=== PATIENT | male | born 1960 | race Caucasian/White ===

== ENCOUNTER 2020-07-23 15:37 | Emergency (ER) | payer OTHER ==
[2020-07-23 16:20] LABS: Basophils % 1.1 % (0-1.3); Hematocrit 45.2 % (39.6-49.0); Lymphocytes % 25.1 % (15.3-44.8); MPV 9.6 fL (7.6-11.3); Protime INR 0.97; RBC Red Blood Cell Count 4.96 M/uL (4.33-5.43)
[2020-07-23 16:37] LABS: ALT/SGPT 28 U/L (12-78); AST/SGOT 11 U/L (15-37); Albumin 4.1 g/dL (3.4-5.0); Alkaline Phosphatase 89 U/L (45-117); BUN Blood Urea Nitrogen 24 mg/dL (7-18); Bicarbonate 27 mmol/L (21-32); Bilirubin Direct 0.2 mg/dL (0-0.2); Bilirubin Total 0.8 mg/dL (0.2-1.0); Glucose Level 100 mg/dL (74-106); Magnesium 2.2 mg/dL (1.8-2.4); NT PRO-BNP 22 pg/mL (<125); Protein, Total 7.7 g/dL (6.4-8.2); Sodium Level 140 mmol/L (136-145); Troponin (Emerg Dept Use Only) < 0.02 ng/mL (0.0-0.045)
--- NOTE | 2020-07-23 16:46 | RAD REPORT ---
EXAM DESCRIPTION: Deb Single View07/23/2020 4:11 pm CLINICAL HISTORY: Chest pain COMPARISON: 2008 FINDINGS: The lungs appear clear of acute infiltrate. The heart is normal size IMPRESSION: No acute abnormalities displayed
[2020-07-23] MEDS ORDERED: LIDOCAINE VISCOUS 2% SOLN 15 ML UDC ONE (17:38)
[2020-07-23] MEDS ORDERED: MAGNES/ALUMIN/SIMET 30ML UCUP ONE (17:38)
--- NOTE | 2020-07-23 18:38 | EDPHYS ---
Physician Documentation [facility] Name: Donn Ryder Age: 59 yrs Sex: Male : 1960 Arrival Date: 07/23/2020 Time: 15:39 Bed 7 Private MD: ED Physician Deniz Gifford HPI: 07/23 15:55 This 59 yrs old Male presents to ER via Ambulatory with complaints of Chest jm Pain. 15:55 The patient or guardian reports chest pain that is located primarily in the substernal [facility] area. Onset: gradually, 1 week(s) ago. The pain radiates to. Associated signs and symptoms: Pertinent positives: chest pain. The chest pain is described as aching. Duration: The patient or guardian reports multiple episodes. Modifying factors: The symptoms are alleviated by nothing. the symptoms are aggravated by. This is a 59 year old male with a history of hlp, GERD that presents to the ED with complaints of midsternal chest pain beginning approx 1 week ago which has waxed and waned. Pain radiates to the right side of the chest as well. Denies SOB. States he does have some epigatric pain which is similar in character to pain from hiatal hernia/GERD. Patient states he also has had occasional palpitations. . Historical: - Allergies: 15:46 No Known Allergies; ll1 - PMHx: 15:46 High Cholesterol; GERD; ll1 - PSHx: 15:46 knee sx; Cholecystectomy; ll1 - Immunization history:: Flu vaccine is not up to date. - Social history:: Smoking status: Patient denies any tobacco usage or history of. ROS: 15:55 Constitutional: Negative for fever, chills, and weight loss. jmm 15:55 Cardiovascular: Positive for chest pain. 15:55 Abdomen/GI: Positive for abdominal pain. 15:55 All other systems are negative. Exam: 15:55 Constitutional: This is a well developed, well nourished patient who is awake, alert, jmm and in no acute distress. Head/Face: atraumatic. Eyes: EOMI, no conjunctival erythema appreciated ENT: Moist Mucus Membranes Neck: Trachea midline, Supple Chest/axilla: Normal chest wall appearance and motion. Cardiovascular: Regular rate and rhythm. No edema appreciated Respiratory: Normal respirations, no respiratory distress appreciated 15:55 Back: Normal ROM Skin: General appearance color normal MS/ Extremity: Moves all extremities, no obvious deformities appreciated, no edema noted to the lower extremities Neuro: Awake and alert, normal gait Psych: Behavior is normal, Mood is normal, Patient is cooperative and pleasant 15:55 Abdomen/GI: Inspection: abdomen appears normal, Bowel sounds: normal, Palpation: soft, mild abdominal tenderness, in the epigastric area. Vital Signs: 15:43 BP 131 / 85; Pulse 91; Resp 17; Temp 97.1; Pulse Ox 100% ; Weight 92.53 kg; Height 6 ll1 ft. 0 in. (182.88 cm); Pain 3/10; 16:25 BP 118 / 73; Pulse 84 MON; Resp 14; Pulse Ox 100% on R/A; sv 17:25 BP 109 / 72; Pulse 71; Resp 13; Pulse Ox 98% on R/A; sv 18:30 BP 110 / 80; Pulse 69; Resp 14; Pulse Ox 98% on R/A; sv 15:43 Body Mass Index 27.67 (92.53 kg, 182.88 cm) ll1 16:25 Sinus Rhythm sv MDM: 16:56 Patient medically screened. [facility] 18:36 Data reviewed: vital signs, nurses notes. Counseling: I had a detailed discussion with aleks the patient and/or guardian regarding: the historical points, exam findings, and any diagnostic results supporting the discharge/admit diagnosis, lab results, radiology results, the need for outpatient follow up, to return to the emergency department if symptoms worsen or persist or if there are any questions or concerns that arise at home. Refusal of service: The patient/guardian displays adequate decision making capability and despite a detailed discussion of alternatives, benefits, risks, and consequences refuses: Admission to the hospital for further work-up and treatment. ED course: Patient refused repeat troponin. 07/23 15:55 Order name: Basic Metabolic Panel [facility] 07/23 15:55 Order name: CBC with Diff [facility] 07/23 15:55 Order name: LFT's [facility] 07/23 15:55 Order name: Magnesium [facility] 07/23 15:55 Order name: NT PRO-BNP [facility] 07/23 15:55 Order name: PT-INR [facility] 07/23 15:55 Order name: Troponin (emerg Dept Use Only) [facility] 07/23 16:23 Order name: Protime (+INR); Complete Time: 17:28 [facility] 07/23 16:26 Order name: CBC with Automated Diff; Complete Time: 16:41 [facility] 07/23 16:37 Order name: Basic Metabolic Panel; Complete Time: 16:41 [facility] 07/23 16:37 Order name: Liver (Hepatic) Function; Complete Time: 16:41 [facility] 07/23 16:37 Order name: Troponin (Emerg Dept Use Only); Complete Time: 16:41 [facility] 07/23 16:37 Order name: NT PRO-BNP; Complete Time: 16:41 [facility] 07/23 16:37 Order name: Magnesium; Complete Time: 16:41 [facility] 07/23 15:55 Order name: XRAY Chest (1 view) [facility] 07/23 15:55 Order name: EKG; Complete Time: 15:56 [facility] 07/23 15:55 Order name: Cardiac monitoring; Complete Time: 16:03 [facility] 07/23 15:55 Order name: EKG - Nurse/Tech; Complete Time: 16:03 [facility] 07/23 15:55 Order name: IV Saline Lock; Complete Time: 16:21 [facility] 07/23 15:55 Order name: Labs collected and sent; Complete Time: 16:21 [facility] 07/23 15:55 Order name: O2 Per Protocol; Complete Time: 16:03 [facility] 07/23 15:55 Order name: O2 Sat Monitoring; Complete Time: 16:03 [facility] 07/23 16:47 Order name: RAD; Complete Time: 16:54 [facility] 07/23 16:56 Order name: D-Dimer [facility] 07/23 17:28 Order name: D-Dimer; Complete Time: 17:28 [facility] 07/23 17:52 Order name: Troponin (emerg Dept Use Only): draw at 1840 jmm Administered Medications: 17:24 Drug: GI Cocktail without - (Maalox Suspension 30 ml, Lidocaine Liquid 2 % 15 sv ml) Route: PO; 18:54 Follow up: Response: No adverse reaction sv Disposition: 07/23/20 18:38 Discharged to Home. Impression: Chest pain, unspecified. - Condition is Stable. - Discharge Instructions: Nonspecific Chest Pain. - Medication Reconciliation Form, Thank You Letter, Antibiotic Education, Prescription Opioid Use form. - Follow up: Private Physician; When: 1 - 2 days; Reason: Recheck today's complaints, Continuance of care, Re-evaluation by your physician. Addendum: 07/28/2020 19:21 Co-signature as Attending Physician, Deniz Gifford MD I agree with the assessment and t w4 plan of care. Signatures: Dispatcher [employer] Angelina Sanchez, RN RN Gary Hernandez PA PA jmm Baxter, Heather, RN RN Deniz Gifford MD MD tw4 Kaur Perez RN RN ll1 Corrections: (The following items were deleted from the chart) 07/23 18:54 18:38 07/23/2020 18:38 Discharged to Home. Impression: Chest pain, unspecified. hb Condition is Stable. Forms are Medication Reconciliation Form, Thank You Letter, Antibiotic Education, Prescription Opioid Use. Follow up: Private Physician; When: 1 - 2 days; Reason: Recheck today's complaints, Continuance of care, Re-evaluation by your physician. aleks
--- NOTE | 2020-07-23 18:38 | ER ---
Nurse's Notes [facility] Name: Donn Ryder Age: 59 yrs Sex: Male : 1960 Arrival Date: 07/23/2020 Time: 15:39 Bed 7 Private MD: Diagnosis: Chest pain, unspecified Presentation: 07/23 15:43 Chief complaint: Patient states: CP off/on for 1 week. Thought his hiatal hernia was ll1 acting up, medications didn't help for GERD. Coronavirus screen: Client denies travel out of the [place] in the last 14 days. Ebola Screen: Patient denies travel to an Ebola-affected area in the 21 days before illness onset. Initial Sepsis Screen: Does the patient meet any 2 criteria? HR > 90 bpm. No. Patient's initial sepsis screen is negative. Does the patient have a suspected source of infection? Yes: Other: chest pain. Risk Assessment: Do you want to hurt yourself or someone else? Patient reports no desire to harm self or others. Onset of symptoms was July 17, 2020. 15:43 Method Of Arrival: Ambulatory ll1 15:43 Acuity: RIOS 3 ll1 Historical: - Allergies: 15:46 No Known Allergies; ll1 - PMHx: 15:46 High Cholesterol; GERD; ll1 - PSHx: 15:46 knee sx; Cholecystectomy; ll1 - Immunization history:: Flu vaccine is not up to date. - Social history:: Smoking status: Patient denies any tobacco usage or history of. Screenin:50 Abuse screen: Denies threats or abuse. Denies injuries from another. Nutritional sv screening: No deficits noted. Tuberculosis screening: No symptoms or risk factors identified. Fall Risk None identified. Assessment: 15:55 General: Appears in no apparent distress. uncomfortable, slender, well groomed, well sv developed, Behavior is calm, cooperative, appropriate for age. Pain: Complains of pain in anterior aspect of left upper chest and left breast Pain does not radiate. Pain currently is 3 out of 10 on a pain scale. Pain began about a week ago Is continuous, Current management is with Prilosec with no relief. Neuro: Level of Consciousness is awake, alert, obeys commands, Oriented to person, place, time, situation, Moves all extremities. Full function Gait is steady, Speech is normal. Cardiovascular: Patient's skin is warm and dry. Rhythm is sinus rhythm. Respiratory: Airway is patent Respiratory effort is even, unlabored, Respiratory pattern is regular, symmetrical. Derm: Skin is intact, Skin is pink, warm \T\ dry. Musculoskeletal: Range of motion: intact in all extremities. 17:25 Reassessment: Patient appears in no apparent distress at this time. No changes from sv previously documented assessment. Patient and/or family updated on plan of care and expected duration. Pain level reassessed. Patient is alert, oriented x 3, equal unlabored respirations, skin warm/dry/pink. 18:42 Reassessment: Pt refusing to have repeat troponin drawn, wants to just go home. sv 18:54 Reassessment: Patient appears in no apparent distress at this time. Patient and/or sv family updated on plan of care and expected duration. Pain level reassessed. Patient is alert, oriented x 3, equal unlabored respirations, skin warm/dry/pink. Vital Signs: 15:43 BP 131 / 85; Pulse 91; Resp 17; Temp 97.1; Pulse Ox 100% ; Weight 92.53 kg; Height 6 ll1 ft. 0 in. (182.88 cm); Pain 3/10; 16:25 BP 118 / 73; Pulse 84 MON; Resp 14; Pulse Ox 100% on R/A; sv 17:25 BP 109 / 72; Pulse 71; Resp 13; Pulse Ox 98% on R/A; sv 18:30 BP 110 / 80; Pulse 69; Resp 14; Pulse Ox 98% on R/A; sv 15:43 Body Mass Index 27.67 (92.53 kg, 182.88 cm) ll1 16:25 Sinus Rhythm sv ED Course: 15:39 Patient arrived in ED. rg4 15:45 Triage completed. ll1 15:47 Arm band placed on. ll1 15:50 Angelina Dyson, RN is Primary Nurse. sv 15:50 Patient has correct armband on for positive identification. Placed in gown. Bed in low sv position. solvent process extractor operator on. Pulse ox on. NIBP on. Door closed. Head of bed elevated. 15:54 Gary Hernandez PA is PHCP. aleks 15:54 Deniz Gifford MD is Attending Physician. [facility] 15:56 EKG done, by ED staff, reviewed by Gary ROMEO. sv 16:03 X-ray(s) taken. Patient maintains SpO2 saturation greater than 95% on room air. sv 16:05 Inserted saline lock: 20 gauge in right antecubital area, using aseptic technique. sv Blood collected. Flushed right antecubital with 5 ml normal saline. 16:21 Basic Metabolic Panel Sent. sv 16:21 CBC with Diff Sent. sv 16:21 LFT's Sent. sv 16:21 Magnesium Sent. sv 16:21 NT PRO-BNP Sent. sv 16:21 PT-INR Sent. sv 16:21 Troponin (emerg Dept Use Only) Sent. sv 16:21 XRAY Chest (1 view) Sent. sv 17:24 D-Dimer Sent. sv 18:50 IV discontinued, intact, bleeding controlled, No redness/swelling at site. Pressure dh3 dressing applied. 18:53 No provider procedures requiring assistance completed. IV discontinued, intact, sv bleeding controlled, No redness/swelling at site. Pressure dressing applied. Administered Medications: 17:24 Drug: GI Cocktail without - (Maalox Suspension 30 ml, Lidocaine Liquid 2 % 15 sv ml) Route: PO; 18:54 Follow up: Response: No adverse reaction sv Outcome: 18:38 Discharge ordered by . [facility] 18:53 Discharged to home ambulatory. sv 18:53 Condition: stable 18:53 Discharge instructions given to patient, Instructed on discharge instructions, follow up and referral plans. Demonstrated understanding of instructions, follow-up care. 18:53 Discharged to home ambulatory. hb 18:53 Condition: stable 18:53 Discharge instructions given to patient, Instructed on discharge instructions, follow up and referral plans. medication usage, Demonstrated understanding of instructions, follow-up care, medications. 18:54 Patient left the ED. hb Signatures: Angelina Dyson RN RN Gary Kerns PA PA jmm Baxter, Heather, RN RN hb Garcia, Rubi 4 Alma Chilel 3 Kaur Perez RN RN ll1 Corrections: (The following items were deleted from the chart) 15:48 15:43 BP 133 / 100; Pulse 91bpm; Resp 17bpm; Pulse Ox 100%; Temp 97.1F; 92.53 kg; ll1 Height 6 ft. 0 in.; BMI: 27.6; Pain 310; ll1
[2020-07-23 18:59] VITALS: TEMP 97.1
[2020-07-23 19:02] VITALS: BP 109/72; O2SAT 98
--- NOTE | 2020-07-24 13:14 | EKG ---
Test Date: 2020-07-23 Test Time: 15:56:31 Radio Interference Trouble Shooter: MALINDA MEASUREMENT RESULTS: Intervals: Rate: 81 IN: 170 QRSD: 82 QT: 344 QTc: 399 [place]ion: P: 61 IN: 170 QRS: 96 T: 60 INTERPRETIVE STATEMENTS: Normal sinus rhythm with sinus arrhythmia Possible Left atrial enlargement Rightward axis RSR' or QR pattern in V1 suggests right ventricular conduction delay Borderline ECG Compared to ECG 11/24/2008 14:30:19 Right-axis deviation now present RSR' in V1 or V2 now present Sinus bradycardia no longer present Electronically Signed On 07-24-20 13:12:33 DIRECTOR OF GLOBAL SALES by Kennedy Montes
== END 2020-07-23 18:54 | disposition home or self-care (01) ==
LOC: ER 15:37
DX: R07.9 Chest pain, unspecified (principal); E78.00 Pure hypercholesterolemia, unspecified; K21.9 Gastro-esophageal reflux disease without esophagitis
CPT/HCPCS: 36415; 71045; 80048; 80076; 83735; 83880; 84484; 85025; 85379; 85610; 93005; 99285

== ENCOUNTER 2023-04-11 13:53 | Emergency (ER) | payer OTHER ==
[2023-04-11 14:35] LABS: Absolute Lymphocytes (CBC) 2.3 K/uL (0.7-4.9); Hematocrit 43.3 % (39.6-49.0); Lymphocytes % 27.3 % (15.3-44.8); MCV 91.5 fL (80-100); MPV 8.7 fL (7.6-11.3); Platelets 252 thou/uL (152-406); RBC Red Blood Cell Count 4.73 M/uL (4.33-5.43)
[2023-04-11] MEDS ORDERED: KETOROLAC 30 MG/ML INJ ONE (14:36)
[2023-04-11] MEDS ORDERED: METHYLPREDNISOLONE 125 MG INJ ONE (14:36)
[2023-04-11] MEDS ORDERED: NA CHLORIDE 0.9% 1,000 ML ONE (14:37)
[2023-04-11] MEDS ORDERED: FAMOTIDINE 20 MG/2 ML VIAL IV ONE (14:52)
[2023-04-11 14:56] LABS: Albumin 4.1 g/dL (3.4-5.0); Bilirubin Total 0.6 mg/dL (0.2-1.0); Potassium 3.8 mEq/L (3.5-5.1); Protein, Total 7.5 g/dL (6.4-8.2); Troponin High Sensitivity 6.1 pg/mL (<58.9)
--- NOTE | 2023-04-11 15:05 | RAD REPORT ---
EXAM DESCRIPTION: Deb Single View04/11/2023 2:40 pm CLINICAL HISTORY: Chest pain COMPARISON: 2020 FINDINGS: The lungs appear clear of acute infiltrate. The heart is normal size IMPRESSION: No acute abnormalities displayed
--- NOTE | 2023-04-11 15:12 | ER ---
Nurse's Notes [facility] Name: Donn Ryder Age: 62 yrs Sex: Male : 1960 Arrival Date: 04/11/2023 Time: 13:53 Bed 3 Private MD: Rashaad Terry C Diagnosis: Headache;Gastro-esophageal reflux disease without esophagitis Presentation: 04/11 13:57 Chief complaint: Patient states: headaches for 1 month that have improved but not gone cm10 away. Pt states that he continues to have pressure to his temples and forehead. Pt also reports that he is also having increased indigestion and has been increasing his Zantac and Omeprazole. Coronavirus screen: Vaccine status: Patient reports receiving the 2nd dose of the covid vaccine. Client denies travel out of the [place] in the last 14 days. Ebola Screen: Patient denies travel to an Ebola-affected area in the 21 days before illness onset. No symptoms or risks identified at this time. Initial Sepsis Screen: Does the patient meet any 2 criteria? No. Patient's initial sepsis screen is negative. Does the patient have a suspected source of infection? No. Patient's initial sepsis screen is negative. Risk Assessment: Do you want to hurt yourself or someone else? Patient reports no desire to harm self or others. Onset of symptoms was April 11, 2023. 13:57 Method Of Arrival: Ambulatory cm10 13:57 Acuity: RIOS 3 cm10 Triage Assessment: 14:15 Headache History: Other Denies prior Headaches before 3 months ago. aa5 Historical: - Allergies: 14:04 Codeine; cm10 - PMHx: 14:04 GERD; High Cholesterol; cm10 - Immunization history:: Adult Immunizations unknown. - Social history:: Smoking status: Patient denies any tobacco usage or history of. Screenin:15 [facility] ED Fall Risk Assessment (Adult) History of falling in the last 3 months, aa5 including since admission No falls in past 3 months (0 pts) Confusion or Disorientation No (0 pts) Intoxicated or Sedated No (0 pts) Impaired Gait No (0 pts) Mobility Assist Device Used No (0 pt) Altered Elimination No (0 pt) Score/Fall Risk Level 0 - 2 = Low Risk Oriented to surroundings, Maintained a safe environment, Educated pt \\T\\ family on fall prevention, incl call for assistance when getting out of bed. Abuse screen: Denies threats or abuse. Nutritional screening: No deficits noted. Tuberculosis screening: No symptoms or risk factors identified. Assessment: 14:15 General: Appears comfortable, Behavior is calm, cooperative. Pain: Complains of pain in aa5 right religious and left religious and epigastric area Pain does not radiate. Pain currently is 6 out of 10 on a pain scale. Quality of pain is described as pressure, Pain began "about 3 months ago" Is intermittent. Neuro: Level of Consciousness is awake, alert, obeys commands, Oriented to person, place, time, situation, Well Services Operator are equal bilaterally Moves all extremities. Gait is steady, Speech is normal, Facial symmetry appears normal, Reports headache frontal area. Cardiovascular: Heart tones S1 S2 present Rhythm is regular. Respiratory: Airway is patent Respiratory effort is even, unlabored, Respiratory pattern is regular, symmetrical. GI: Abdomen is round non-distended, Bowel sounds present X 4 quads. Abd is soft and non tender X 4 quads. Reports indigestion, Patient currently denies diarrhea, nausea, vomiting. : No signs and/or symptoms were reported regarding the genitourinary system. EENT: No signs and/or symptoms were reported regarding the EENT system. Derm: Skin is pink, warm \\T\\ dry. Musculoskeletal: Range of motion: intact in all extremities. 16:00 Reassessment: Patient is alert, oriented x 3, equal unlabored respirations, skin aa5 warm/dry/pink. Vital Signs: 13:57 BP 141 / 90; Pulse 89; Resp 18; Temp 96.9(TE); Pulse Ox 100% ; Weight 92.53 kg; Height cm10 6 ft. 0 in. ; Pain 6/10; 15:15 BP 120 / 76; Pulse 72; Resp 16 S; Temp 97.2(TE); Pulse Ox 100% on R/A; aa5 13:57 Body Mass Index 27.67 (92.53 kg, 182.88 cm) cm10 13:57 Pain Scale: Adult cm10 NIH Stroke Scale Scores: 14:04 NIHSS Score: 0 [facility] ED Course: 13:54 Patient arrived in ED. rg4 13:55 Rashaad Terry MD is Private Physician. rg4 13:55 Nadeen Wolff FNP is [facility]. 7 13:55 Nikki Harley MD is Attending Physician. jh7 14:04 Triage completed. cm10 14:04 Arm band placed on Patient placed in an exam room, on a stretcher. cm10 14:15 Patient has correct armband on for positive identification. Placed in gown. Bed in low aa5 position. Call light in reach. Side rails up X2. 14:20 Initial lab(s) drawn, by me, sent to lab. Inserted saline lock: 20 gauge in right aa5 antecubital area, using aseptic technique. Blood collected. 14:30 Maeve Sena, MARIO is Primary Nurse. aa5 14:41 XRAY Chest (1 view) In Process Unspecified. EDVT 15:11 Rashaad Terry MD is Referral Physician. [facility] 15:11 Reagan Dietz MD is Referral Physician. [facility] 16:00 No provider procedures requiring assistance completed. IV discontinued, intact, aa5 bleeding controlled, No redness/swelling at site. Pressure dressing applied. Administered Medications: 14:30 Drug: MethylPrednisoLONE IVP 125 mg IVP once Route: IVP; Site: right antecubital; aa5 14:45 Follow up: Response: No adverse reaction aa5 14:31 Drug: Ketorolac IVP 30 mg IVP once Route: IVP; Site: right antecubital; aa5 14:45 Follow up: Response: No adverse reaction aa5 14:40 Drug: Famotidine IVP 20 mg IVP once; dilute with 10 mL 0.9% NaCl; give over 2 minutes aa5 Route: IVP; Site: right antecubital; 14:45 Follow up: Response: No adverse reaction aa5 14:40 Drug: NS 0.9% IV 1000 ml IV at 1 bolus Per protocol; 1000 mL bolus Route: IV; Rate: 1 aa5 bolus; Site: right antecubital; 16:00 Follow up: IV Status: Completed infusion; IV Intake: 1000ml aa5 Medication: 16:00 VIS not applicable for this client. aa5 Intake: 16:00 IV: 1000ml; Total: 1000ml. aa5 Outcome: 15:11 Discharge ordered by . [facility] 16:00 Discharged to home ambulatory, aa5 16:00 Condition: stable 16:00 Discharge instructions given to patient, Instructed on discharge instructions, follow up and referral plans. Demonstrated understanding of instructions, follow-up care, 16:01 Patient left the ED. aa5 NIH Stroke Scale - NIH Stroke Score Date: 04/11/2023 Time: 14:04 Total Score = 0 10. Dysarthria (speech clarity - read or repeat words) - 0(Normal) 11. Extinction and Inattention (visual/tactile/auditory/spatial/personal) - 0(No abnormality) 1a. Level of Consciousness (LOC) - 0(Alert) 1b. Level of Consciousness (LOC) (Month \\T\\ Age) - 0(Both) 1c. LOC Commands (Open \\T\\ Closes Eyes/Buy Boat Operator) - 0(Both) 2. Best Gaze (Lateral Gaze Paresis) - 0(Normal) 3. Visual Field Loss - 0(No visual loss) 4. Facial Palsy - 0(Normal) 5a. Left Arm: Motor (10-second hold) - 0(No drift) 5b. Right Arm: Motor (10-second hold) - 0(No drift) 6a. Left Leg: Motor (5-second hold - always test supine) - 0(No drift) 6b. Right Leg: Motor (5-second hold - always test supine) - 0(No drift) 7. Limb Ataxia (finger/nose \\T\\ heel/[place] - test with eyes open) - 0(Absent) 8. Sensory Loss (pinprick arms/legs/face) - 0(Normal) 9. Best Language: Aphasia (description/naming/reading) - 0(No aphasia) Initials: [facility] Signatures: Dispatcher [employer] Maeve Joshua, RN RN aa5 Dana Stern 4 Nadeen Wolff, ENGINE DESIGNER ENGINE DESIGNER 7 Sarah Rodriguez, MARIO RN cm10
--- NOTE | 2023-04-11 15:12 | EDPHYS ---
Physician Documentation [facility] Name: Donn Ryder Age: 62 yrs Sex: Male : 1960 Arrival Date: 04/11/2023 Time: 13:53 Bed 3 Private MD: Rashaad Terry C ED Physician Nikki Harley HPI: 04/11 14:04 This 62 yrs old Male presents to ER via Ambulatory with complaints of Headache, [facility] epigastric burning. 14:04 Patient reports that he developed a headache 1 month ago when he was discharged from [facility] the ER for a flulike illness. Reports that the headache has improved since then but that he still feels pressure over his forehead and temples. Also reports a history of GERD and states that he still experiences epigastric pain. Reports that he has doubled his Zantac and omeprazole with no relief. He is a patient of Dr. Terry. Denies dizziness, speech changes, syncope, or weakness.. Historical: - Allergies: 14:04 Codeine; cm10 - PMHx: 14:04 GERD; High Cholesterol; cm10 - Immunization history:: Adult Immunizations unknown. - Social history:: Smoking status: Patient denies any tobacco usage or history of. ROS: 14:04 Constitutional: Negative for fever, chills, and weight loss, Eyes: Negative for injury, [facility] pain, redness, and discharge, Neck: Negative for injury, pain, and swelling, Cardiovascular: Negative for chest pain, palpitations, and edema, Respiratory: Negative for shortness of breath, cough, wheezing, and pleuritic chest pain, Back: Negative for injury and pain, MS/Extremity: Negative for injury and deformity, Skin: Negative for injury, rash, and discoloration, 14:04 Abdomen/GI: Positive for abdominal pain, Negative for nausea, vomiting, and diarrhea, dysphagia, 14:04 Neuro: Positive for headache, Negative for altered mental status, dizziness, gait disturbance, loss of consciousness, numbness, seizure activity, speech changes, syncope, tingling, visual changes, 14:04 All other systems are negative, Exam: 14:04 Constitutional: This is a well developed, well nourished patient who is awake, alert, [facility] and in no acute distress. Head/Face: Normocephalic, atraumatic. Eyes: Pupils equal round and reactive to light, extra-ocular motions intact. Lids and lashes normal. Conjunctiva and sclera are non-icteric and not injected. Cornea within normal limits. Periorbital areas with no swelling, redness, or edema. Neck: Trachea midline, no thyromegaly or masses palpated, and no cervical lymphadenopathy. Supple, full range of motion without nuchal rigidity, or vertebral point tenderness. No Meningismus. Cardiovascular: Regular rate and rhythm with a normal S1 and S2. No gallops, murmurs, or rubs. Normal PMI, no JVD. No pulse deficits. Respiratory: Lungs have equal breath sounds bilaterally, clear to auscultation and percussion. No rales, rhonchi or wheezes noted. No increased work of breathing, no retractions or nasal flaring. Abdomen/GI: Soft, non-tender, with normal bowel sounds. No distension or tympany. No guarding or rebound. No evidence of tenderness throughout. Skin: Warm, dry with normal turgor. Normal color with no rashes, no lesions, and no evidence of cellulitis. MS/ Extremity: Pulses equal, no cyanosis. Neurovascular intact. Full, normal range of motion. Neuro: Awake and alert, GCS 15, oriented to person, place, time, and situation. Cranial nerves II-XII grossly intact. Motor strength 5/5 in all extremities. Sensory grossly intact. Cerebellar exam normal. Normal gait. Vital Signs: 13:57 BP 141 / 90; Pulse 89; Resp 18; Temp 96.9(TE); Pulse Ox 100% ; Weight 92.53 kg; Height cm10 6 ft. 0 in. ; Pain 6/10; 15:15 BP 120 / 76; Pulse 72; Resp 16 S; Temp 97.2(TE); Pulse Ox 100% on R/A; aa5 13:57 Body Mass Index 27.67 (92.53 kg, 182.88 cm) cm10 13:57 Pain Scale: Adult cm10 NIH Stroke Scale Scores: 14:04 NIHSS Score: 0 [facility] MDM: 13:55 Patient medically screened. [facility] 15:10 Differential diagnosis: cluster headache, migraine, sinusitis. Data reviewed: vital [facility] signs, nurses notes, lab test result(s), EKG, radiologic studies, plain films. I considered the following discharge prescriptions or medication management in the emergency department Medications were administered in the Emergency Department. See MAR. Independent interpretation of the following test(s) in the Emergency Department EKG: See my EKG interpretation above. Counseling: I had a detailed discussion with the patient and/or guardian regarding the historical points, exam findings, and any diagnostic results supporting the discharge/admit diagnosis, the need for outpatient follow up, a neurologist, to return to the emergency department if symptoms worsen or persist or if there are any questions or concerns that arise at home. Response to treatment: the patient's symptoms have markedly improved after treatment. 04/11 14:06 Order name: CBC with Diff; Complete Time: 14:54 jh7 04/11 14:06 Order name: CMP; Complete Time: 14:57 7 04/11 14:06 Order name: Lipase; Complete Time: 14:57 7 04/11 14:06 Order name: Troponin High Sensitivity; Complete Time: 14:57 7 04/11 14:06 Order name: XRAY Chest (1 view); Complete Time: 15:06 7 04/11 14:06 Order name: IV Saline Lock; Complete Time: 14:31 jh7 04/11 14:06 Order name: Labs collected and sent; Complete Time: 14:31 7 04/11 14:06 Order name: EKG - Nurse/Tech; Complete Time: 14:30 jh7 EC:04 Rate is 77 beats/min. Rhythm is regular. QRS [place] is Normal. MA interval is normal at jh7 188 msec. QRS interval is normal at 84 msec. QT interval is normal at 350 msec. No Q waves. T waves are Normal. No ST changes noted. Clinical impression: Normal sinus rhythm. Administered Medications: 14:30 Drug: MethylPrednisoLONE IVP 125 mg IVP once Route: IVP; Site: right antecubital; aa5 14:45 Follow up: Response: No adverse reaction aa5 14:31 Drug: Ketorolac IVP 30 mg IVP once Route: IVP; Site: right antecubital; aa5 14:45 Follow up: Response: No adverse reaction aa5 14:40 Drug: Famotidine IVP 20 mg IVP once; dilute with 10 mL 0.9% NaCl; give over 2 minutes aa5 Route: IVP; Site: right antecubital; 14:45 Follow up: Response: No adverse reaction aa5 14:40 Drug: NS 0.9% IV 1000 ml IV at 1 bolus Per protocol; 1000 mL bolus Route: IV; Rate: 1 aa5 bolus; Site: right antecubital; 16:00 Follow up: IV Status: Completed infusion; IV Intake: 1000ml aa5 Disposition: 16:43 Co-signature as Attending Physician, Nikki Harley MD. cp3 Disposition Summary: 04/11/23 15:11 Discharge Ordered Notes: Location: Home [facility] Problem: new [facility] Symptoms: have improved [facility] Condition: Stable [facility] Diagnosis - Headache [facility] - Gastro-esophageal reflux disease without esophagitis [facility] Followup: [facility] - With: Reaagn Dietz MD - When: 2 - 3 days - Reason: Recheck today's complaints Discharge Instructions: - Discharge Summary Sheet [facility] - Food Choices for Gastroesophageal Reflux Disease, Adult [facility] - General Headache Without Cause jh - Tension Headache, Adult [facility] Forms: - Medication Reconciliation Form [facility] - Thank You Letter [facility] - Patient Portal Instructions [facility] - Leadership Thank You Letter [facility] NIH Stroke Scale - NIH Stroke Score Date: 04/11/2023 Time: 14:04 Total Score = 0 10. Dysarthria (speech clarity - read or repeat words) - 0(Normal) 11. Extinction and Inattention (visual/tactile/auditory/spatial/personal) - 0(No abnormality) 1a. Level of Consciousness (LOC) - 0(Alert) 1b. Level of Consciousness (LOC) (Month \T\ Age) - 0(Both) 1c. LOC Commands (Open \T\ Closes Eyes/Otolaryngology Rep) - 0(Both) 2. Best Gaze (Lateral Gaze Paresis) - 0(Normal) 3. Visual Field Loss - 0(No visual loss) 4. Facial Palsy - 0(Normal) 5a. Left Arm: Motor (10-second hold) - 0(No drift) 5b. Right Arm: Motor (10-second hold) - 0(No drift) 6a. Left Leg: Motor (5-second hold - always test supine) - 0(No drift) 6b. Right Leg: Motor (5-second hold - always test supine) - 0(No drift) 7. Limb Ataxia (finger/nose \T\ heel/[place] - test with eyes open) - 0(Absent) 8. Sensory Loss (pinprick arms/legs/face) - 0(Normal) 9. Best Language: Aphasia (description/naming/reading) - 0(No aphasia) Initials: jh7 Signatures: Dispatcher [employer] Nikki Donato MD MD cp3 Maeve Sena, RN RN aa5 Nadeen Wolff, SLURRY CONTROL TENDER SLURRY CONTROL TENDER jh7 Sarah Rodriguez RN RN cm10
[2023-04-11 16:18] VITALS: BP 141/90; TEMP 96.9; O2SAT 100
== END 2023-04-11 16:01 | disposition home or self-care (01) ==
LOC: ER 13:53
DX: R51.9 Headache, unspecified (principal); K21.9 Gastro-esophageal reflux disease without esophagitis; E78.00 Pure hypercholesterolemia, unspecified; Z88.5 Allergy status to narcotic agent
CPT/HCPCS: 96361; 93005; 85025; 36415; 84484; 83690; 80053; 71045; 96375; 96374; 99284; J2930; J7030

== ENCOUNTER → 2023-05-30 | Emergency (ER) | payer OTHER ==
--- NOTE | 2023-05-30 11:58 | EDPHYS ---
Physician Documentation [facility] Name: Donn Ryder Age: 62 yrs Sex: Male : 1960 Arrival Date: 05/30/2023 Time: 10:07 Bed 14 Private MD: ED Physician Zachariah Gaines HPI: 05/30 15:02 This 62 yrs old Male presents to ER via Ambulatory with complaints of Head pain and kdr pressure pain. 15:02 Patient presents with headache that have been intermittent ongoing since February 28 kdr of this year. The patient has seen neurology, ophthalmology and his primary care physician in the past few weeks for this. Patient this week was at the neurologist office (Dr. Manuel Yepez) and was giving a prescription for Topamax. The patient has yet to fulfill that prescription or pick it up. Patient complains of continued headache. Presents with for 5 sheets of orders that have been written by Dr. Yepez for outpatient management. Patient however is concerned that he is not able to get the MRI study until June or later. In general the patient has many questions about his illness and concerns about CSF leakage and other things at this time. I provided reassurance to the patient that this was unlikely without significant physical findings. These would include rhinorrhea otorrhea and other similar symptoms. The patient spoke rapidly with pressured speech. He admits to looking up on his Internet all the symptoms of various acute life-threatening maladies that may be manifesting as his headaches have been. To date with the extensive workup already done, the specialist have been unable to discern an exact reason or cause for his headaches. Patient had not been given any medications until the last few days. Dr. Yepez had prescribed Topamax and again the patient had yet to fill that prescription.. Onset: The symptoms/episode began/occurred suddenly, 3 month(s) ago, February 28 was the acute onset of this year. Severity of symptoms: At their worst the symptoms were moderate in the emergency department the symptoms are unchanged. The patient has experienced similar episodes in the past, chronically. Historical: - Allergies: 10:36 Codeine; hb 10:42 Hydrocodone; hb - PMHx: 10:36 GERD; High Cholesterol; hb - Immunization history:: Adult Immunizations up to date. - Social history:: Smoking status: Patient denies any tobacco usage or history of. ROS: 15:02 Constitutional: Negative for fever, chills, and weight loss, Eyes: Negative for injury, kdr pain, redness, and discharge, ENT: Negative for injury, pain, and discharge, Neck: Negative for injury, pain, and swelling, Cardiovascular: Negative for chest pain, palpitations, and edema, Respiratory: Negative for shortness of breath, cough, wheezing, and pleuritic chest pain, Abdomen/GI: Negative for abdominal pain, nausea, vomiting, diarrhea, and constipation, Back: Negative for injury and pain, : Negative for injury, bleeding, discharge, and swelling, MS/Extremity: Negative for injury and deformity, Skin: Negative for injury, rash, and discoloration, Neuro: Negative for headache, weakness, numbness, tingling, and seizure activity. Exam: 15:02 Constitutional: This is a well developed, well nourished patient who is awake, alert, kdr and in no acute distress. Head/Face: Normocephalic, atraumatic. Eyes: Pupils equal round and reactive to light, extra-ocular motions intact. Lids and lashes normal. Conjunctiva and sclera are non-icteric and not injected. Cornea within normal limits. Periorbital areas with no swelling, redness, or edema. Neck: Trachea midline, no thyromegaly or masses palpated, and no cervical lymphadenopathy. Supple, full range of motion without nuchal rigidity, or vertebral point tenderness. No Meningismus. Chest/axilla: Normal chest wall appearance and motion. Nontender with no deformity. No lesions are appreciated. 15:02 Neuro: Orientation: is normal, Mentation: is normal, Memory: is normal, Vital Signs: 10:33 BP 157 / 93; Pulse 95; Resp 16; Temp 98.2; Pulse Ox 100% on R/A; Weight 95.25 kg; hb Height 6 ft. 0 in. ; Pain 4/10; 10:33 Body Mass Index 28.48 (95.25 kg, 182.88 cm) hb 10:33 Pain Scale: Adult hb MDM: 11:57 Patient medically screened. kdr 15:02 Data reviewed: vital signs, nurses notes, lab test result(s), radiologic studies. ED kdr course: I had extensive discussion with Dr. Terry and Dr. Yepez with regard to the patient's presentation today relative to his evaluations with both of the physicians. It appeared that there is no new change in his presentation. Patient is very anxious about potential complications or causes of his headaches. Patient is alert and appropriate and speaking in a pressured way however otherwise the patient is making perfectly good sense and without any evidence of acute metabolic process that might result in his untimely and unexpected demise. Administered Medications: No medications were administered Disposition Summary: 05/30/23 11:57 Discharge Ordered Problem: an ongoing problem kdr Symptoms: are unchanged kdr Condition: Stable kdr Diagnosis - Headache kdr Followup: kdr - With: Private Physician - When: 2 - 3 days - Reason: If symptoms return, Further diagnostic work-up, Recheck today's complaints, Continuance of care, Re-evaluation by your physician Discharge Instructions: - Discharge Summary Sheet kdr - General Headache Without Cause, [id number] kdr Forms: - Medication Reconciliation Form kdr - Thank You Letter kdr - Patient Portal Instructions kdr - Leadership Thank You Letter kdr Prescriptions: - Neurontin 300 mg Oral Capsule - take 1 capsule ORAL route At bedtime; 20 capsule; Refills: 0, Product Selection kdr Permitted Signatures: Zachariah Gaines MD MD kdr Alyce Harley, RN RN
--- NOTE | 2023-05-30 11:58 | ER ---
Nurse's Notes [facility] Name: Donn Ryder Age: 62 yrs Sex: Male : 1960 Arrival Date: 05/30/2023 Time: 10:07 Bed 14 Private MD: Diagnosis: Headache Presentation: 05/30 10:33 Chief complaint: Headache and tinnitus x 3 months. Recently seen by Dr. Yepez. hb Coronavirus screen: At this time, the client does not indicate any symptoms associated with coronavirus-19. Ebola Screen: No symptoms or risks identified at this time. Initial Sepsis Screen: Does the patient meet any 2 criteria? No. Patient's initial sepsis screen is negative. Does the patient have a suspected source of infection? No. Patient's initial sepsis screen is negative. Risk Assessment: Do you want to hurt yourself or someone else? Patient reports no desire to harm self or others. Onset of symptoms was February 28, 2023. 10:33 Method Of Arrival: Ambulatory hb 10:33 Acuity: RIOS 3 hb Triage Assessment: 10:45 General: Appears in no apparent distress. Behavior is cooperative, appropriate for age, bp anxious. Pain: Complains of pain in head. Historical: - Allergies: 10:36 Codeine; hb 10:42 Hydrocodone; hb - PMHx: 10:36 GERD; High Cholesterol; hb - Immunization history:: Adult Immunizations up to date. - Social history:: Smoking status: Patient denies any tobacco usage or history of. Screenin:29 [facility] ED Fall Risk Assessment (Adult) History of falling in the last 3 months, bp including since admission No falls in past 3 months (0 pts). Abuse screen: Denies threats or abuse. Denies injuries from another. Nutritional screening: No deficits noted. Tuberculosis screening: No symptoms or risk factors identified. Assessment: 10:45 General: SEE TRIAGE NOTE. bp 11:29 Neuro: Level of Consciousness is awake, alert, obeys commands, Oriented to Appropriate bp for age. Vital Signs: 10:33 BP 157 / 93; Pulse 95; Resp 16; Temp 98.2; Pulse Ox 100% on R/A; Weight 95.25 kg; hb Height 6 ft. 0 in. ; Pain 4/10; 10:33 Body Mass Index 28.48 (95.25 kg, 182.88 cm) hb 10:33 Pain Scale: Adult hb ED Course: 10:08 Patient arrived in ED. ts1 10:09 Zachariah Gaines MD is Attending Physician. kdr 10:36 Triage completed. hb 10:36 Arm band placed on. hb 10:47 Vamsi Galan, RN is Primary Nurse. bp 11:29 Patient has correct armband on for positive identification. bp 12:32 No provider procedures requiring assistance completed. Patient did not have IV access bp during this emergency room visit. Administered Medications: No medications were administered Medication: 11:29 VIS not applicable for this client. bp Outcome: 11:57 Discharge ordered by MD. kdr 12:32 Discharged to home ambulatory, bp 12:32 Condition: stable 12:32 Discharge instructions given to patient, Instructed on discharge instructions, follow up and referral plans. medication usage, Demonstrated understanding of instructions, follow-up care, medications, Prescriptions given X 1, 12:32 Patient left the ED. bp Signatures: Zachariah Gaines MD MD kdr Alyce Harley RN RN Vamsi Galan RN RN bp Tori Wise, ALVARO PAS ts1 Corrections: (The following items were deleted from the chart) 10:41 10:33 Chief complaint: Headache and tinnitus x 3 months. hb hb 10:41 10:33 BP 157 / 93; Pulse 95bpm; Resp 16bpm; Pulse Ox 100% RA; Temp 98.2F; hb hb
[2023-05-30 12:38] VITALS: BP 157/93; TEMP 98.2; O2SAT 100
== END ==
LOC: ER 10:07
DX: R51.9 Headache, unspecified (principal); Z88.5 Allergy status to narcotic agent
CPT/HCPCS: 99283